=== PATIENT | female | born 1990 | race Caucasian/White ===

== ENCOUNTER 2019-11-10 15:08 | Outpatient (CLI) | payer SELFPAY ==
--- NOTE | 2019-11-10 | US_ITS ---
WS: [id number] ULTRASOUND ABDOMEN CLINICAL INFORMATION: NONINFECTIVE GASTROENTERITIS AND COLITIS RUQ AND RLQ PAIN COMPARISON: Ultrasound January 19, 2017 FINDINGS: Liver Size: Normal. Craniocaudal length: 18.4 cm. Echogenicity: Normal. Surface nodularity: None. Mass (size and location): Small hyperechoic lesion right hepatic lobe likely cavernous hemangioma katy suring 5.3 x 8.5 x 4.1 mm Bile ducts Intrahepatic ducts: Normal. Common bile duct diameter: 0.4 cm. Gallbladder Small stone or polyp in the gallbladder fundus. Gallbladder wall thickening: None. Pericholecystic fluid: None. Sonographic Arteaga sign: Absent. Pancreas Normal as visualized Right kidney: Normal. Hydronephrosis: None. Size: 10.2 cm x 4.3 cm x 4.2 cm Left kidney: Normal. Hydronephrosis: None. Size: 11.2 cm x 5.0 cm x 4.4 cm. Abdominal aorta and IVC Visualized portions are normal. Ascites: None. US/US abdomen complete* [id number] IMPRESSION: 1. Small 5.3 x 8.5 x 4.1 mm hyperechoic lesion right hepatic lobe likely incid ental cavernous hemangioma. 2. Tiny calculus or polyp in the fundus gallbladder. Gallbladder otherwise nor mal. 3. No hydronephrosis in right kidney.
== END 2019-11-10 15:09 | disposition home or self-care (01) ==
LOC: RAD 15:11
PROVIDERS: PCP Nurse Practitioner Family; Visit Provider Nurse Practitioner Family
DX: K52.9 Noninfective gastroenteritis and colitis, unspecified (principal); K76.9 Liver disease, unspecified
CPT/HCPCS: 76700

== ENCOUNTER 2019-11-28 20:41 | Emergency (ER) | payer SELFPAY ==
[2019-11-28 20:47] VITALS: BP 128/86; PULSE 82; RESP 16; TEMP 36.9; O2SAT 100; BMI 26.6
--- NOTE | 2019-11-28 21:05 | ED_ITS ---
HPI - Abdominal Pain General: Chief Complaint: Abdominal Pain Stated Complaint: abdominal pain/vomiting Time Seen by Provider: 11/28/19 20:55 History of Present Illness: HPI narrative: Patient complains about right upper quadrant pain did see Dr. Rodrigez and he referred her to Dr. cm of her appointment on Thursday to see about get her gallbladder out she has a sluggish gallbladder ultrasound showed stone they have been following her labs and they have looked okay patient says she just hurt all day not able to keep food down very well MD elicited complaint: abdominal pain Onset (ago): month(s) Pain Consistency: constant Location: RUQ Severity: moderate Quality: aching Radiation: back Exacerbating factors: eating Relieving factors: nothing Associated Symptoms: Reports bloating; Denies chills and fever(s) Review of Systems Const: Denies: fever(s), chills or body aches Eyes: Denies: change in vision or blurry vision ENMT: Denies: throat pain or nasal congestion Card: Denies: chest pain or dyspnea on exertion Resp: Denies: dyspnea, productive cough or non-productive cough GI: Reports: abdominal pain and bloating Musc: Denies: extremity pain Skin/Breast: Denies: rash Neuro: Denies: headache(s) Psych: Denies: anxiety or depression Osacr/Lymph: Denies: easy bruising PFSH ED PFSH: Family History Mother Thyroid disease Other Diabetes Social History (Updated 11/23/19 @ 09:00 by Anusha Gallegos, CT) Smoking and tobacco status: current every day smoker Alcohol intake: never Marital status: Single Number of children: 1 service: No History of recent travel: No Current gender identity: Female Physical Exam Const: COMMON NORMALS: no acute distress, average body habitus and patient oriented x3 HENMT: COMMON NORMALS: normocephalic HEAD & SCALP: normal to inspection and normocephalic FACE & SINUS: normal facial exam Eye: COMMON NORMALS: conjunctivae normal GENERAL EYE: appearance normal, both eyes and all related structures CONJUNCTIVA: Yes conjunctivae normal Neck/C-Spine: COMMON NORMALS: no JVD Chest: COMMONS NORMALS: normal inspection of the chest Resp: COMMON NORMALS: normal respiratory effort and clear to auscultation bilaterally AUSCULTATION: clear to auscultation bilaterally Cardio: COMMON NORMALS: no JVD, regular rate and regular rhythm RATE: regular rate RHYTHM: regular rhythm GI: COMMON NORMALS: Normal to inspection, nondistended, normoactive bowel sounds present Extremity: COMMON NORMALS: normal to inspection and full ROM Neuro: COMMON NORMALS: patient oriented x3 Course Vital Signs: Vital signs: Vital Signs Temperature 98.5 F 11/28/19 20:47 Pulse Rate 82 11/28/19 20:47 Respiratory Rate 16 11/28/19 20:47 Blood Pressure 128/86 11/28/19 20:47 Pulse Oximetry 100 11/28/19 20:47 Discharge Plan Discharge Prescriptions: No Action cyanocobalamin (vitamin B-12) 1,000 mcg/mL kit 1,000 mcg IM .monthly RF: 0 medroxyprogesterone [Depo-Provera] 150 mg/mL suspension IM .every 3 months RF: 0 hydroxyzine HCl 25 mg tablet 25 mg PO TID PRNRF: 0 ibuprofen 800 mg tablet 800 mg PO TID RF: 0 esomeprazole magnesium [Nexium 24HR] 20 mg capsule,delayed release(DR/EC) 20 mg PO DAILY RF: 0 promethazine 25 mg tablet 25 mg PO QID PRNRF: 0 solifenacin [Vesicare] 5 mg tablet 5 mg PO DAILY RF: 0 levocetirizine [Xyzal] 5 mg tablet 5 mg PO DAILY RF: 0 Coding Level of Care Code ED Printing Roller Polisher for Eugene Suarez
[2019-11-28 21:15] VITALS: BP 132/88; PULSE 83; RESP 14; O2SAT 97
[2019-11-28 21:18] LABS: Basophils % 0.5 %; Eosinophils # 0.3 10^3/uL (0.0-0.8); Eosinophils % 4.9 %; Hematocrit 39.5 % (37.0-47.0); Hemoglobin 12.9 g/dL (11.5-15.3); Lymphocytes # 2.4 10^3/uL (0.8-4.8); Lymphocytes % 37.9 %; Mean Corpuscular HGB Conc 32.7 g/dL (30.0-36.0); Mean Corpuscular Hemoglobin 30.6 pg (28.0-34.0); Mean Corpuscular Volume 93.8 fL (81-99); Mean Platelet Volume 10.3 fL (7.4-10.4); Monocytes # 0.6 10^3/uL (0.2-0.9); Monocytes % 9.5 %; Neutrophils # 2.9 10^3/uL (1.8-7.7); Neutrophils % 46.7 %; Nucleated Red Blood Cells % 0 %; Platelet Count 268 10^3/cmm (130-400); Red Blood Count 4.21 10^6/uL (4.1-5.3); White Blood Count 6.3 10^3/uL (4.0-10.0)
[2019-11-28 21:25] VITALS: RESP 14; O2SAT 100
[2019-11-28] MEDS: morphine 4 mg/mL SDV 1 mL IVP (21:25)
[2019-11-28] MEDS: sodium chloride 0.9% 1,000 ML 999 ML IV (21:25)
[2019-11-28] MEDS: ondansetron 2 mg/ML SDV 2 mL 8 MG IVP (21:25)
[2019-11-28 21:35] LABS: Alanine Aminotransferase 21 U/L (0-33); Albumin Level 4.3 g/dL (3.5-5.2); Alkaline Phosphatase 68 IU/L (35-105); Anion Gap 13.8 (5-19); Aspartate Amino Transferase 18 U/L (0-32); Blood Urea Nitrogen 11 mg/dL (6-20); Calcium 8.9 mg/dL (8.5-10.5); Carbon Dioxide 23 mmol/L (22-29); Chloride 105 mmol/L (98-107); Creatinine Clr Calc Pharmacy 123.7547; Glomerular Filtration Rate 99.6 mL/min (90-130); Glucose 90 mg/dL (65-115); Lipase 36 U/L (13-60); Osmolality Calculated 282 mOsm/kg (285-295); Potassium 3.8 mmol/L (3.5-5.1); Sodium 138 mmol/L (136-145); Total Bilirubin 0.2 mg/dL (0.15-1.2); Total Protein 7.3 g/dL (6.6-8.7)
[2019-11-28 21:41] LABS: HCG Qualitative Urine. Negative (Negative)
[2019-11-28 21:51] LABS: Add Urine Microscopic? YES; Bilirubin Urine Neg (NEGATIVE); Blood Urine Neg (Negative); Glucose Urine UA Norm (Normal); Ketones Urine Negative (Negative); Leukocyte Esterase Urine Trace (Negative); Nitrate Urine Negative (Negative); Protein Urine Neg (Negative); Urine Appearance Hazy (CLEAR); Urine Color Yellow (Yellow); Urobilinogen Urine Norm (Negative); pH Urine 7 (5-7)
[2019-11-28 21:53] LABS: Add Urine Culture? No; Bacteria Urine 1+; RBC Urine 0-4 /hpf (0-2)
[2019-11-28 22:01] VITALS: BP 132/88; PULSE 63; RESP 16; O2SAT 100
[2019-11-28] MEDS: HYDROcodone-acetaminophen 7.5-325 mg Tablet 1 TAB PO (22:05)
[2019-11-28 22:06] VITALS: BP 116/86; PULSE 60; RESP 16; O2SAT 100
== END 2019-11-28 22:09 | disposition home or self-care (01) ==
PROVIDERS: Emergency Medicine; Emergency Provider Nurse Practitioner Family; PCP Nurse Practitioner Family
DX: R10.9 Unspecified abdominal pain (principal); F17.210 Nicotine dependence, cigarettes, uncomplicated
CPT/HCPCS: 12345; 36415; 80053; 81001; 81025; 83690; 85025; 96361; 96374; 96375; 99282; 99283; A9270; J2270; J2405; J7030

== ENCOUNTER 2019-12-06 08:40 | Day surgery (SDC) | payer SELFPAY ==
[2019-12-05 10:29] VITALS: BMI 26.6
[2019-12-06] VITALS (18 sets, daily range): BP systolic 107–168; BP diastolic 71–107; PULSE 60–102; RESP 14–29; TEMP 36.2–36.6; O2SAT 98–100
[2019-12-06] MEDS: sodium chloride 0.9% 1,000 ML 30 ML IV (09:12)
[2019-12-06 09:13] LABS: OR HCG Qualitative Urine Negative (Negative)
[2019-12-06] MEDS: scopolamine 1.5 Patch 1 PATCH TRANSDERMA (09:22)
--- NOTE | 2019-12-06 09:28 | ANES.PREANE2 ---
Pre-Anesthetic Assessment Pre-Anesthetic Assessment: Height/Weight: Height 1.68 m Weight 74.843 kg Temp Pulse Resp BP Pulse Ox 97.9 F 66 18 125/90 100 12/06/19 09:00 12/06/19 09:00 12/06/19 09:00 12/06/19 09:00 12/06/19 09:00 Preop Diagnosis: Symptomatic cholelithiasis Proposed Procedure: Operation Date: 12/06/19 10:10 Proposed Procedures p Laparoscopic Cholecystectomy 78642 K80.20(Not Applicable) - Bill Molina MD Last intake: Intake Last Liquid Date 12/05/19 Last Liquid Time 22:00 Last Solid Date 12/05/19 Last Solid Time 22:00 Social: Social History: Tobacco and No alcohol Exam: Pre-Anes Outpt Exam: alert, oriented x 3, clear to auscultation bilaterally and regular rate & rhythm Airway: Submandibular: WNL Cervical ROM: WNL MP: 2 Dentition: Other (teeth good) History/ROS: No significant history except as noted Pulmonary: Pulmonary: None reported CV/HEM: CV/HEM: None reported : : None reported Hepatic: Hepatic: None reported GI: GI: GERD (not well controlled) Metabolic: Metabolic: None reported Musc/skel: Musc/skel: None reported Neuropsych: Neuropsych: Anxiety and Depression Anesthetic Plan: ASA status: 2 Anesthesia: Anesthesia Evaluation and General Risk of > 500 ml blood loss (7ml/kg in children): No Meds/Allergies Current Medications: Current Medications Generic Name Dose Route Start Last Admin Trade Name Freq PRN Reason Stop Dose Admin Sodium Chloride 1,000 mls @ 30 ml s/hr 12/06/19 09:00 12/06/19 09:12 Sodium Chloride 0.9% IV 12/07/19 08:59 30 mls/hr .Q24H ESDRAS Administration PFSH Anesthesia PFSH: Medical History (Updated 12/06/19 @ 00:00 by ) Anxiety GERD (gastroesophageal reflux disease) Hearing loss Surgical History History of tonsillectomy Family History Mother Thyroid disease Other Diabetes Denies family history of Anesthesia complication Bleeding disorder Social History Smoking and tobacco status: current every day smoker Alcohol intake: never Marital status: Single Number of children: 1 service: No History of recent travel: No Current gender identity: Female Data Anesthesia Other Labs: Laboratory Results - last 48 hr 12/06/19 08:50 Urine HCG, Qual Negative Cardiac Studies: No Data to Display
--- NOTE | 2019-12-06 10:10 | W.PM.OPSUD ---
Surgery/Procedure H&P Update DATE OF PROCEDURE: December 06, 2019 DATE H&P PERFORMED: 11/30/19 H&P UPDATE INFORMATION: I have reviewed H&P completed within last 30 days, I have examined patient prior to procedure and No changes to prior documentation PREOP DIAGNOSIS: Symptomatic cholelithiasis PRIMARY INDICATION FOR PROCEDURE: The same PLANNED PROCEDURE: Operation Date: 12/06/19 10:10 Proposed Procedures p Laparoscopic Cholecystectomy 13547 K80.20(Not Applicable) - Bill Molina MD
[2019-12-06] MEDS: lidocaine 2% INJ 20 mL INJECTION (11:33)
--- NOTE | 2019-12-06 11:43 | PM.OP ---
Operative Report Date of procedure: December 06, 2019 Pre-op Diagnosis: Symptomatic cholelithiasis Post-op diagnosis: other (Chronic calculus cholecystitis) Procedure Done: Laparoscopic cholecystectomy Specimens removed/disposition: Gallbladder and contents Surgeon: Bill Molina Back Strip Machine Operator: Surgical lei Meyers Circulating nurses Kristi Abraham and Desirae Anesthesia: General (Dr. Arreola) Estimated blood loss (mL): 10 Condition: stable Disposition: same day Brief History: This is a pleasant 29 years old female patient presents to my office with symptomatic gallbladder disease . plan of care; After thorough history physical examination and reviewing the chart ,I counseled the patient for laparoscopic cholecystectomy possible open, indications risks including but not limited injury to the common bile duct and other viscera.benefits and alternatives all discussed with the patient, and she did agree to proceed. All questions have been answered and all concerns have been addressed to patient's satisfaction. Rationale was carefully and clearly discussed with the patient.Appropriate informed consent have been reviewed and signed. Procedure: Patient was identified in the holding area and taken back to the operative suite, placed in supine position intubated by anesthesia . Time-out was done verifying the patient's name/date of /planned procedure and destination after the procedure, all were in agreement. SCDs confirmed to be functioning, preoperative antibiotics administered per protocol, and beta shiv protocol was confirmed. Patient was appropriately secured to the table, footboard was applied to the OR table, before prep and drape anesthesia was asked to tilt the table back and forth to make sure that the patient is appropriately secured and she was. Prep and drape of the abdomen was done under the usual sterile technique, followed by that supraumbilical skin transverse incision and excision of the previous scar,skin incision was done by a 15 blade knife, and stay sutures were applied to the fascia and Moreno trocar technique was used to enter the abdominal without injuring any abdominal viscera, started by low flow gas insufflation followed by a high flow, started with a 10 mm laparoscope and under direct vision there was no evidence of any injuries, the scope then switched to a 30? ,10 millimeter scope and under direct visualization 5 millimeter trocar was inserted in the epigastric region followed by two 5 mm trocars were inserted in the right upper quadrant that was done after injection of local lidocaine 2% at all incision sites. Gallbladder showed chronic calculus cholecystitis with adhesions Patient was then positioned in the head up and tilted to the left Ratcheted forceps were introduced into the lateral most 5mm port and was applied unto the fundus of the gallbladder cephalad and using Bullet forceps the infundibulum of the gallbladder was retracted laterally. Using [place] forceps then L-hook cautery to dissect the peritoneum overlying the Calot's triangle whihc was then opened medially and laterally until the cystic duct and the cystic artery were skeletonized. Dissection was carried along the body of the gallbladder and after ensuring critical view of safety was identfied. Cystic duct and cystic artery where seen connected to the gallbladder. Clips were applied on the cystic duct towards the common bile duct 1 towards the gallbladder then divided is in sharp scissors, 2 clips were then applied onto the cystic artery and 1 towards the gallbladder and divided by sharp scissors. Patient traversing vessels were clipped and then divided Dissection was then carried along of the gallbladder from the gallbladder fossa using cautery as well as sharp dissection with heat energy. The gallbladder then was dissected out from the gallbladder fossa totally , cholecystectomy was then achieved and was placed in an Endo Catch bag and then retrieved from the Moreno trocar site under direct visualization using a 5 mm 30? scope through the epigastric trocar, specimen was then passed to the circulating nurse to go for permanent pathology,irrigation and hemostasis was done to the gallbladder fossa after hemostasis was secured, final survey laparoscopy was done that showed no injuries.Suction irrigation was obtaine.d The supraumbilical fascial defect was then closed using interrupted Vicryl sutures using a fascial closure device ;Jhonatan Adair under direct visualization(I did notice that the patient's fascia was attenuated) followed by closure of the subcutaneous and subdermal layer by 3-0 Vicryl after thorough irrigation. Gas was allowed to deflate,Trocars were then taken out under direct vision there was no evidence of bleeding Specimen was passed to the circulating nurse for permanent pathology. No drains were placed and the supraumbilical incision as well as all trocar sites were closed by by 4-0 Monocryl to approximate the skin edges of the supraumbilical incision, dressing was applied in the form of Dermabond and the patient patient got extubated and was taken to recovery area in a stable condition. Count of sponges,needles and instruments were completed at the end of the procedure I was present for the whole entire procedure.
[2019-12-06] MEDS: fentaNYL 50 mcg/mL INJ 2mL IVP ×2 (12:17→12:22)
[2019-12-06] MEDS: morphine 4 mg/mL SDV 1 mL 2 MG IVP ×2 (12:35→12:40)
[2019-12-06] MEDS: HYDROcodone-acetaminophen 5-325 mg Tablet 1 TAB PO (13:33)
== END 2019-12-06 14:13 | disposition home or self-care (01) ==
PROVIDERS: PCP Nurse Practitioner Family; Visit Provider Surgery
PROC: 0FT44ZZ Resection of Gallbladder, Percutaneous Endoscopic Approach (ICD-10-PCS; CPT 47562; principal; 2019-12-06 10:05)
DX: K80.10 Calculus of gallbladder with chronic cholecystitis without obstruction (principal); F41.9 Anxiety disorder, unspecified; K21.9 Gastro-esophageal reflux disease without esophagitis; F17.210 Nicotine dependence, cigarettes, uncomplicated
CPT/HCPCS: 47562; 12345; 81025; 84703; 88304; J0690; J2001; J2270; J2704; J3010; J3490; J7030

== ENCOUNTER → 2020-02-24 08:57 | Outpatient (BNVA) | payer OTHER, SELFPAY | PROVIDERS: PCP Nurse Practitioner Family; Visit Provider Internal Medicine | DX: K21.9 Gastro-esophageal reflux disease without esophagitis (principal); R19.4 Change in bowel habit; Z20.828 Contact with and (suspected) exposure to other viral communicable diseases | CPT/HCPCS: 87635 ==

== ENCOUNTER → 2020-10-23 10:52 | Outpatient (BNVA) | payer BC, SELFPAY | PROVIDERS: PCP Nurse Practitioner Family; Visit Provider Internal Medicine Rheumatology | DX: M19.90 Unspecified osteoarthritis, unspecified site (principal); R76.8 Other specified abnormal immunological findings in serum; Z79.899 Other long term (current) drug therapy; Z11.59 Encounter for screening for other viral diseases; Z11.1 Encounter for screening for respiratory tuberculosis; F17.210 Nicotine dependence, cigarettes, uncomplicated | CPT/HCPCS: 99204 ==

== ENCOUNTER 2020-10-23 12:34 | Outpatient (CLI) | payer BC, SELFPAY ==
[2020-10-23 13:14] LABS: Basophils % 0.3 %; Eosinophils # 0.2 10^3/uL (0.0-0.8); Eosinophils % 3.5 %; Hematocrit 40.2 % (37.0-47.0); Hemoglobin 13.6 g/dL (11.5-15.3); Lymphocytes # 2.4 10^3/uL (0.8-4.8); Lymphocytes % 37.7 %; Mean Corpuscular HGB Conc 33.8 g/dL (30.0-36.0); Mean Corpuscular Hemoglobin 30.8 pg (28.0-34.0); Mean Corpuscular Volume 91.2 fL (81-99); Mean Platelet Volume 10.4 fL (7.4-10.4); Monocytes # 0.5 10^3/uL (0.2-0.9); Monocytes % 7.1 %; Neutrophils # 3.25 10^3/uL (1.8-7.7); Neutrophils % 51.2 %; Nucleated Red Blood Cells % 0 %; Platelet Count 263 10^3/cmm (130-400); Red Blood Count 4.41 10^6/uL (4.1-5.3); White Blood Count 6.3 10^3/uL (4.0-10.0)
[2020-10-23 14:02] LABS: 25 Hydroxy Vitamin D 17 ng/mL (30-100); Alanine Aminotransferase 49 U/L (0-33); Albumin Level 3.9 g/dL (3.5-5.2); Alkaline Phosphatase 78 IU/L (35-105); Aspartate Amino Transferase 144 U/L (0-32); Globulin 3.1 g/dL (1.3-4.6); Glomerular Filtration Rate 118.2 mL/min (90-130); Total Bilirubin 0.5 mg/dL (0.15-1.2)
[2020-10-23 14:08] LABS: Bilirubin Urine Neg (Negative); Blood Urine 3+ (Negative); Glucose Urine UA Norm (Normal); Ketones Urine Negative (Negative); Leukocyte Esterase Urine Negative (Negative); Nitrate Urine Negative (Negative); Protein Urine Neg (Negative); Urine Appearance Clear (CLEAR); Urine Color Straw (Yellow); Urobilinogen Urine Norm (Negative); pH Urine 6.5 (5-7)
[2020-10-23 14:09] LABS: Urine Creatinine 82 mg/dL (28-217); Urine Protein Random 12 mg/dL
[2020-10-23 14:11] LABS: RBC Urine 0-4 /hpf (0-2); WBC Urine 0-4 /hpf (0-5)
[2020-10-23 14:12] LABS: Add Urine Culture? No; Bacteria Urine 3+ /hpf
[2020-10-23 14:14] LABS: Hepatitis B Core AB, Total Non-Reactive (Nonreactive); Hepatitis B Surface Antigen Non-Reactive (Nonreactive); Hepatitis C Virus Antibody Non-Reactive (Nonreactive)
[2020-10-24 11:32] LABS: COMPLEMENT COMPONENT C3C 105 mg/dL (83-193); COMPLEMENT COMPONENT C4C 23 mg/dL (15-57)
[2020-10-24 14:54] LABS: COMPLEMENT, TOTAL (CH50) >60 U/mL (31-60)
[2020-10-25 13:17] LABS: CENTROMERE B ANTIBODY <1.0 NEG AI (<1.0 NEG); JO-1 ANTIBODY <1.0 NEG AI (<1.0 NEG); RNP ANTIBODY <1.0 NEG AI (<1.0 NEG); SCL-70 ANTIBODY <1.0 NEG AI (<1.0 NEG); SJOGREN'S ANTIBODY (SS-A) <1.0 NEG AI (<1.0 NEG); SM ANTIBODY <1.0 NEG AI (<1.0 NEG); SS-B <1.0 NEG AI (<1.0 NEG)
[2020-10-25 14:58] LABS: Quantiferon Mitogen 8.02 IU/mL; Quantiferon Nil 0.01 IU/mL; Quantiferon Plus TB1 0.01 IU/mL; Quantiferon Plus TB2 0.01 IU/mL; Quantiferon TB Gold NEGATIVE (NEGATIVE)
[2020-10-25 16:33] LABS: THYROID PEROXIDASE ANTIBODIES 417 IU/mL (<9)
[2020-10-26 14:27] LABS: ANA PATTERN Nuclear, Homogeneous; ANA SCREEN, IFA POSITIVE (NEGATIVE)
[2020-11-02 23:51] LABS: DNA AB (DS) CRITHIDIA,IFA NEGATIVE (NEGATIVE)
== END 2020-10-23 12:35 | disposition home or self-care (01) ==
PROVIDERS: PCP Nurse Practitioner Family; Visit Provider Internal Medicine Rheumatology
DX: M19.90 Unspecified osteoarthritis, unspecified site (principal); R76.8 Other specified abnormal immunological findings in serum; Z79.899 Other long term (current) drug therapy; Z11.59 Encounter for screening for other viral diseases; Z11.1 Encounter for screening for respiratory tuberculosis
CPT/HCPCS: 36415; 80076; 81001; 82306; 82565; 82570; 84156; 85025; 86160; 86162; 86235; 86255; 86376; 86480; 86704; 86803; 87340

== ENCOUNTER → 2020-11-27 15:06 | Outpatient (BNVA) | payer BC, SELFPAY | PROVIDERS: PCP Nurse Practitioner Family; Visit Provider Internal Medicine Rheumatology | DX: M15.9 Polyosteoarthritis, unspecified (principal); R76.8 Other specified abnormal immunological findings in serum; Z79.899 Other long term (current) drug therapy; F17.210 Nicotine dependence, cigarettes, uncomplicated | CPT/HCPCS: 99214 ==

== ENCOUNTER 2021-02-15 15:04 | Emergency (ER) | payer BC, SELFPAY ==
[2021-02-15 16:08] VITALS: BP 125/85; PULSE 60; RESP 18; TEMP 36.7; O2SAT 98; BMI 26.4
--- NOTE | 2021-02-15 17:28 | USR_ITS ---
PROCEDURE INFORMATION: Exam: US Pelvis, Transvaginal Exam date and time: 02/15/2021 5:28 PM Age: 30 years old Clinical indication: Pelvic pain; Additional info: Bleeding/cramping; Check iud placement, PT not in room, er will call once placed in room-kb TECHNIQUE: Imaging protocol: Real-time transvaginal pelvic ultrasound with image documentation. Transvaginal imaging was used for better evaluation of the endometrium, adnexa, and/or cervix. COMPARISON: No relevant prior studies available. FINDINGS: Transvaginal imaging of the pelvis was performed. The uterus measured 6.8 x 3.6 by 4.8 cm. There is no uterine mass. An IUD is noted within the endometrial canal. Is The right ovary measured 4.4 x 3.2 x 4.0 cm. There is a 2.8 cm cyst within the right ovary. Normal color Doppler and spectral waveforms are seen within the remainder of the ovary. The left ovary measured 2.7 x 1.6 x 2.2 cm. There is no mass within the left ovary. Normal color Doppler and spectral waveforms are noted. Minimal free fluid is seen within the cul-de-sac. US/ transvaginal [id number] IMPRESSION: 1. The 2.8 cm cyst within the right ovary. 2. IUD within the uterus.
--- NOTE | 2021-02-15 21:00 | ED_ITS ---
HPI - Female Genitourinary General: Chief complaint: Urogenital-Female Stated complaint: vaginal discomfort Time Seen by Provider: 02/15/21 20:37 Source: patient Mode of arrival: ambulatory Limitations: no limitations History of Present Illness: HPI Narrative: Patient is a 30-year-old female who presents to ED today with concerns of possible IUD misplacement. Patient tells me she has not been able to feel her strings over the past few days. She states she noticed some lower pelvic cramping yesterday but states that is not abnormal as she has had this intermittently since the IUD was placed in August. She has not had any vaginal bleeding since IUD placement but noticed yesterday she did experience some blood when wiping. She is not having any vaginal odor, vaginal discharge, dyspareunia. Denies new sexual partners. No fevers. MD elicited complaint: other (pelvic cramping, vaginal bleeding, concern for IUD placement) Onset (ago): hour(s) Quality of pain: cramping Consistency: intermittent Vaginal discharge: none Vaginal bleeding: scant Exacerbating factors: none Relieving factors: none Associated symptoms: Reports no associated symptoms; Deny abdominal pain, nausea or vaginal discharge Treatment prior to arrival: none Patient : No Review of Systems Const: Denies: fever(s), chills, body aches, fatigue or malaise Card: Denies: chest pain Resp: Denies: dyspnea GI: Reports: diarrhea (chronic since cholecystectomy); Denies: abdominal pain, nausea or vomiting : Reports: vaginal bleeding and pelvic pain; Denies: flank pain, difficulty voiding, dysuria, urinary urgency, vaginal odor or vaginal discharge Musc: Denies: back pain Skin/Breast: Denies: rash PFSH ED PFSH: Medical History (Updated 02/15/21 @ 22:47 by HERMELINDO Correia) Anti-TPO antibodies present Anxiety GERD (gastroesophageal reflux disease) Hearing loss High risk medication use Immunization counseling Inflammatory arthritis Positive ADRIENNE (antinuclear antibody) Surgical History History of adenoidectomy History of cholecystectomy History of hernia repair History of tonsillectomy Family History Mother Thyroid disease Other Diabetes Denies family history of Anesthesia complication Bleeding disorder Social History Smoking and tobacco status: current every day smoker Alcohol intake: never Marital status: Single Number of children: 1 Current occupational status: employed History of recent travel: No Physical Exam Const: COMMON NORMALS: no acute distress, average body habitus, patient oriented x3, no limitations, healthy appearing, alert and well nourished Resp: COMMON NORMALS: normal respiratory effort and clear to auscultation bilaterally AUSCULTATION: clear to auscultation bilaterally Cardio: COMMON NORMALS: regular rate and regular rhythm RATE: regular rate RHYTHM: regular rhythm GI: COMMON NORMALS: Normal to inspection, nondistended, normoactive bowel sounds present, Soft to palpation, non-tender, No hepatosplenomegaly present and no masses AUSCULTATION: Yes normoactive bowel sounds PALPATION: Yes Soft to palpation, No Guarding due to palpation present (GI), No Rigid due to palpation and Yes No hepatosplenomegaly present OTHER: tenderness to palpation lower pelvis : COMMON NORMALS: Yes no CVA tenderness BLADDER/KIDNEY EXAM: Yes no CVA tenderness OTHER: patient deferred pelvic exam Back/Pelvis: COMMON NORMALS: no CVA tenderness Neuro: COMMON NORMALS: patient oriented x3 SENSORIUM/ORIENTATION: Yes alert Course Vital Signs: Vital signs: Vital Signs Temperature 98.1 F 02/15/21 16:08 Pulse Rate 60 02/15/21 16:08 Respiratory Rate 18 02/15/21 22:05 Blood Pressure 125/85 02/15/21 16:08 Pulse Oximetry 99 02/15/21 22:05 MDM - Female MDM Narrative: Medical decision making narrative: Patient had alerted RN that she did not wish to receive pelvic exam at this time fearing it would be too uncomfortable. I told her I would be more than willing to give her additional pain medications if needed however patient does not want this exam. I did tell patient with her complaint of pelvic pain that a pelvic exam would be vital in helping me assess possible etiologies for her discomfort. She understands and states she would like to follow up with her [facility]. She assures me she has not had any new sexual partners, vaginal discharge or concern for STDs. I told her by US it looks like her IUD is in place but ideally I would like to visualize strings myself on pelvic exam. I explained that w/o pelvic exam I do not have a diagnosis regarding her discomfort. She is okay with this and again states she will follow up with [facility]. Strict return to ED precautions given. Lab Data: Labs: Lab Results 02/15/21 02/15/21 02/15/21 Range/Units 20:53 20:53 21:50 WBC 5.8 (4.0-10.0) 10^3/ uL RBC 5.17 (4.1-5.3) 10^6/u L Hgb 15.4 H (11.5-15.3) g/dL Hct 47.3 H (37.0-47.0) % MCV 91.5 (81-99) fl MCH 29.8 (28.0-34.0) pg MCHC 32.6 (30.0-36.0) g/dL RDW 11.7 L (12.1-15.1) % Plt Count 203 (130-400) 10^3/c mm MPV 11.7 H (7.4-10.4) fL Neut % (Auto) 39.7 % Lymph % (Auto) 45.0 % [place] % (Auto) 10.3 % Eos % (Auto) 4.3 % Baso % (Auto) 0.5 % Neut # (Auto) 2.28 (1.8-7.7) 10^3/u L Lymph # (Auto) 2.6 (0.8-4.8) 10^3/u L [place] # (Auto) 0.6 (0.2-0.9) 10^3/u L Eos # (Auto) 0.3 (0.0-0.8) 10^3/u L Baso # (Auto) 0.0 (0.0-0.1) 10^3/u L Nucleated RBC % (a uto) 0 % Nucleated RBCs # 0.0 /100WBC Sodium 139 (136-145) mmol/L Potassium 4.2 (3.5-5.1) mmol/L Chloride 105 (98-107) mmol/L Carbon Dioxide 22 (22-29) mmol/L Anion Gap 16.2 (5-19) BUN 4 L (6-20) mg/dL Creatinine 0.4 L (0.5-0.9) mg/dL GFR Calculation 188.7 H (90-130) mL/min Glucose 81 (65-115) mg/dL Calculated Osmolal ity 284 L (285-295) mOsm/k g Calcium 8.8 (8.5-10.5) mg/dL Total Bilirubin 0.4 (0.15-1.2) mg/dL AST 28 (0-32) U/L ALT 29 (0-33) U/L Alkaline Phosphata se 102 (35-105) IU/L Total Protein 7.9 (6.6-8.7) g/dL Albumin 4.2 (3.5-5.2) g/dL Globulin 3.7 (1.3-4.6) g/dL Lipase 32 (13-60) U/L Ser , Bekah i-Qnt 0.50 mIU/mL Urine Color Yellow (Yellow) Urine Appearance Clear (CLEAR) Urine pH 5 (5-7) Ur Specific Gravit y 1.015 (1.005-1.030) Urine Protein Neg (Negative) Urine Glucose (UA) Norm (Normal) Urine Ketones Negative (Negative) Urine Blood Neg (Negative) Urine Nitrate Negative (Negative) Urine Bilirubin Neg (Negative) Urine Urobilinogen Norm (Negative) mg/dL Ur Leukocyte Althea ase Negative (Negative) Imaging Data: TV US: Radiologist's impression: [address] [id number] ReportSigned Patient: Katelyn Vasquez #: [id number]: 1990Acct#:[id number]/Sex: 30 / FADM Date: 02/15/21Loc: ERRoom/Bed:Attending Dr: Ordering Provider/Ordering MD: Harleen Lawton Date of Service: 02/15/21 Procedure(s): US transvaginal [id number] Accession Number(s): [id number] Report Number: [id number] PROCEDURE INFORMATION: Exam: US Pelvis, Transvaginal Exam date and time: 02/15/2021 5:28 PM Age: 30 years old Clinical indication: Pelvic pain; Additional info: Bleeding/cramping; Check iud placement, PT not in room, er will call once placed in room-kb TECHNIQUE: Imaging protocol: Real-time transvaginal pelvic ultrasound with image documentation. Transvaginal imaging was used for better evaluation of the endometrium, adnexa, and/or cervix. COMPARISON: No relevant prior studies available. FINDINGS: Transvaginal imaging of the pelvis was performed. The uterus measured 6.8 x 3.6 by 4.8 cm. There is no uterine mass. An IUD is noted within the endometrial canal. Is The right ovary measured 4.4 x 3.2 x 4.0 cm. There is a 2.8 cm cyst within the right ovary. Normal color Doppler and spectral waveforms are seen within the remainder of the ovary. The left ovary measured 2.7 x 1.6 x 2.2 cm. There is no mass within the left ovary. Normal color Doppler and spectral waveforms are noted. Minimal free fluid is seen within the cul-de-sac. US/US transvaginal [id number] IMPRESSION: 1. The 2.8 cm cyst within the right ovary. 2. IUD within the uterus. Dictated By:Christiano Damian MDSigned By:Christiano Damian MDSigned Date/Time:02/15/211928DD/ 26 Discharge Plan Discharge Patient Disposition: Home Clinical Impression: Pelvic pain Condition: Stable Prescriptions: No Action prednisone 10 mg tablet See Rx Instructions PO .COMPLEX PRN (Reason: joint pain) Qty: 60 RF: 1 leflunomide 20 mg tablet 20 mg PO DAILY Qty: 30 RF: 3 clobetasol 0.025 % cream 1 applic topical BID Qty: 60 RF: 1 ibuprofen 800 mg tablet 800 mg PO TID RF: 0 promethazine 25 mg tablet 25 mg PO QID PRN (Reason: NAUSEA/VOMITING) RF: 0 levocetirizine [Xyzal] 5 mg tablet 5 mg PO DAILY RF: 0 ciprofloxacin HCl [Cipro] 500 mg tablet 500 mg PO DAILY Qty: 3 RF: 0 Discharge Orders: Discharge ED (Routine); Ordered 02/15/21 Ordered By: Harleen Lawton Referrals: Apurva Salvador FNP-C [Primary Care Provider] - Patient Instructions: Pelvic Pain Activity Restrictions/Additional Instructions: As we discussed your ultrasound today showed your IUD was in place. You did have a cyst on your right ovary. Labs and urine looked normal. As we discussed you have deferred a pelvic exam at this time. I cannot definitively give you a diagnosis for your pelvic discomfort without this examination. As we discussed please follow-up with primary care or your manager cardiovascular at your earliest convenience for further evaluation. Please return to the emergency department for worsening or uncontrollable pain, vaginal discharge, fevers. Or any other concerns you may have. I hope you begin to feel better soon. Coding Level of Care Code ED Band Splicer for Chg Fwd Exam Detailed
[2021-02-15 21:06] LABS: Basophils % 0.5 %; Eosinophils # 0.3 10^3/uL (0.0-0.8); Eosinophils % 4.3 %; Hematocrit 47.3 % (37.0-47.0); Hemoglobin 15.4 g/dL (11.5-15.3); Lymphocytes # 2.6 10^3/uL (0.8-4.8); Mean Corpuscular HGB Conc 32.6 g/dL (30.0-36.0); Mean Corpuscular Hemoglobin 29.8 pg (28.0-34.0); Mean Corpuscular Volume 91.5 fl (81-99); Mean Platelet Volume 11.7 fL (7.4-10.4); Monocytes # 0.6 10^3/uL (0.2-0.9); Monocytes % 10.3 %; Neutrophils # 2.28 10^3/uL (1.8-7.7); Neutrophils % 39.7 %; Nucleated Red Blood Cells % 0 %; Platelet Count 203 10^3/cmm (130-400); Red Blood Count 5.17 10^6/uL (4.1-5.3); Red Cell Distribution Width 11.7 % (12.1-15.1); White Blood Count 5.8 10^3/uL (4.0-10.0)
[2021-02-15 21:08] LABS: Slide Review Slide Review Perform
[2021-02-15 21:27] LABS: Alanine Aminotransferase 29 U/L (0-33); Albumin Level 4.2 g/dL (3.5-5.2); Alkaline Phosphatase 102 IU/L (35-105); Blood Urea Nitrogen 4 mg/dL (6-20); Calcium 8.8 mg/dL (8.5-10.5); Carbon Dioxide 22 mmol/L (22-29); Chloride 105 mmol/L (98-107); Globulin 3.7 g/dL (1.3-4.6); Glomerular Filtration Rate 188.7 mL/min (90-130); Glucose 81 mg/dL (65-115); Lipase 32 U/L (13-60); Osmolality Calculated 284 mOsm/kg (285-295); Sodium 139 mmol/L (136-145); Total Bilirubin 0.4 mg/dL (0.15-1.2); Total Protein 7.9 g/dL (6.6-8.7)
[2021-02-15 21:28] LABS: Anion Gap 16.2 (5-19); Aspartate Amino Transferase 28 U/L (0-32); Potassium 4.2 mmol/L (3.5-5.1)
[2021-02-15 22:01] LABS: Add Urine Microscopic? NO; Charge for UA Resulting for Rev
[2021-02-15 22:04] LABS: Urine Appearance Clear (CLEAR); Urine Color Yellow (Yellow)
[2021-02-15 22:05] VITALS: RESP 18; O2SAT 99
[2021-02-15 22:05] LABS: Bilirubin Urine Neg (Negative); Blood Urine Neg (Negative); Glucose Urine UA Norm (Normal); Ketones Urine Negative (Negative); Leukocyte Esterase Urine Negative (Negative); Nitrate Urine Negative (Negative); Protein Urine Neg (Negative); Specific Gravity, Urine 1.015 (1.005-1.030); Urobilinogen Urine Norm (Negative); pH Urine 5 (5-7)
[2021-02-15] MEDS: morphine 4 mg/mL SDV 1 mL IVP (22:05)
[2021-02-15 23:13] VITALS: BP 139/74; PULSE 72; RESP 18; TEMP 36.9; O2SAT 99
== END 2021-02-15 23:00 | disposition home or self-care (01) ==
PROVIDERS: Emergency Medicine; Emergency Provider Physician Assistant; PCP Nurse Practitioner Family
DX: R10.2 Pelvic and perineal pain (principal); F17.200 Nicotine dependence, unspecified, uncomplicated; Z97.5 Presence of (intrauterine) contraceptive device
CPT/HCPCS: 76830; 80053; 81003; 83690; 84702; 85025; 96374; 99283; J2270

== ENCOUNTER → 2021-03-28 13:10 | Outpatient (BNVA) | payer BC, SELFPAY | PROVIDERS: PCP Nurse Practitioner Family; Visit Provider Internal Medicine Rheumatology | DX: M19.90 Unspecified osteoarthritis, unspecified site (principal); R76.8 Other specified abnormal immunological findings in serum; Z79.899 Other long term (current) drug therapy; Z71.89 Other specified counseling; F17.200 Nicotine dependence, unspecified, uncomplicated | CPT/HCPCS: 99214 ==

== ENCOUNTER → 2021-05-30 11:47 | Outpatient (BNVA) | payer BC, SELFPAY | PROVIDERS: PCP Nurse Practitioner Family; Visit Provider Nurse Practitioner Family | DX: N91.2 Amenorrhea, unspecified (principal) | CPT/HCPCS: 84702 ==

== ENCOUNTER → 2021-06-24 14:18 | Outpatient (BNVA) | payer BC, SELFPAY | PROVIDERS: PCP Nurse Practitioner Family; Visit Provider Family Medicine | DX: J32.9 Chronic sinusitis, unspecified (principal) | CPT/HCPCS: 87400; 87635 ==

== ENCOUNTER → 2021-07-30 11:10 | Outpatient (BNVA) | payer BC, SELFPAY | PROVIDERS: PCP Nurse Practitioner Family; Visit Provider Internal Medicine | DX: Z01.812 Encounter for preprocedural laboratory examination (principal); R93.3 Abnormal findings on diagnostic imaging of other parts of digestive tract; Z20.822 Contact with and (suspected) exposure to COVID-19 | CPT/HCPCS: 87635 ==

== ENCOUNTER 2021-08-05 06:11 | Day surgery (SDC) | payer BC, SELFPAY ==
[2021-07-31 14:47] VITALS: BMI 25.0
[2021-08-05 06:34] VITALS: BP 139/87; PULSE 56; RESP 18; TEMP 36.2; O2SAT 100
[2021-08-05 06:43] LABS: OR HCG Qualitative Urine Negative (Negative)
--- NOTE | 2021-08-05 06:43 | P.ANESASSM_ITS ---
Pre-Anesthetic Assessment Height/Weight: Height 1.68 m Weight 70.307 kg Temp Pulse Resp BP Pulse Ox 97.1 F L 56 L 18 139/87 100 08/05/21 06:34 08/05/21 06:34 08/05/21 06:34 08/05/21 06:34 08/05/21 06:34 Preop Diagnosis: Chron cons Operation Date: 08/05/21 07:00 Proposed Procedures p Colonoscopy 77317/r93.3(Not Applicable) - Luis Enrique Rodrigez MD Was Beta Kirk taken within 24 hours: N/A Was Clonidine taken within 24 hours: N/A Last intake: Intake Last Liquid Date 08/04/21 Last Liquid Time 23:00 Last Solid Date 08/03/21 Last Solid Time 14:00 Social Tobacco and No alcohol 3 cigs per day pack(s) per day Exam alert and oriented x 3 Airway Submandibular: within normal limits Cervical ROM: within normal limits Mallampati: Class II Dentition: full History/ROS No significant history except as noted Pulmonary Asthma (as a child, no issues as an adult) CV/HEM None reported None reported Hepatic None reported GI Gastroesophageal Reflux Disease Metabolic None reported Musc/skel None reported Neuropsych Anxiety Anesthetic Plan ASA status: 2 Anesthesia: Anesthesia Evaluation and MAC Risk of > 500 ml blood loss (7ml/kg in children): Yes, adequate IV access and fluids planned Medications/Allergies Home Medications Medication Instructions Recorded Confirmed Last Taken Type norethindrone 1 mg-ethinyl 1 tab PO DAILY 07/03/21 08/05/21 08/05/21 History estradiol 20 mcg (21)-iron 75 mg (7) tablet levocetirizine 5 mg tablet (Xyzal) 5 mg PO DAILY PRN 08/05/21 08/05/21 Unknown History Allergies Allergy/AdvReac Type Severity Reaction Status Date / Time latex Allergy Intermediate hives Verified 07/30/21 09:12 codeine Allergy Mild unknown Verified 07/03/21 13:24 leflunomide AdvReac Severe blurred Verified 07/03/21 13:24 vision and migraines [facility] Anesthesia Medical History Anti-TPO antibodies present Anxiety Chronic constipation GERD (gastroesophageal reflux disease) Hearing loss High risk medication use Immunization counseling Inflammatory arthritis Positive ADRIENNE (antinuclear antibody) Surgical History History of adenoidectomy History of cholecystectomy History of hernia repair History of tonsillectomy Family History Mother Thyroid disease Other Diabetes Denies family history of Anesthesia complication Bleeding disorder Social History Smoking and tobacco status: current every day smoker Alcohol intake: never Marital status: Single Number of children: 1 Current occupational status: employed History of recent travel: No Data Anesthesia Cardiac Studies: No Data to Display
[2021-08-05] MEDS: sodium chloride 0.9% 1,000 ML 30 ML IV (06:47)
--- NOTE | 2021-08-05 07:16 | W.PM.OPSFHP ---
Same Day Surgery H&P Indication for Procedure/HPI DATE OF PROCEDURE: August 05, 2021 CHIEF COMPLAINT/INDICATIONFOR SURGICAL PROCEDURE: abnormal CT colon PREOP DIAGNOSIS: Chron cons PLANNED PROCEDURE: Operation Date: 08/05/21 07:00 Proposed Procedures p Colonoscopy 36303/r93.3(Not Applicable) - Luis Enrique Rodrigez MD Medications/Allergies* Home Medications Medication Instructions Recorded Confirmed Type norethindrone 1 mg-ethinyl 1 tab PO DAILY 07/03/21 08/05/21 History estradiol 20 mcg (21)-iron 75 mg (7) tablet levocetirizine 5 mg tablet (Xyzal) 5 mg PO DAILY PRN 08/05/21 08/05/21 History Allergies/Adverse Reactions Allergy/AdvReac Type Severity Reaction Status Date / Time latex Allergy Intermediate hives Verified 07/30/21 09:12 codeine Allergy Mild unknown Verified 07/03/21 13:24 leflunomide AdvReac Severe blurred Verified 07/03/21 13:24 vision and migraines Current Medications: Generic Name Dose Route Start Last Admin Trade Name Freq PRN Reason Stop Dose Admin Sodium Chloride 1,000 mls @ 30 mls/hr 08/05/21 06:15 08/05/21 06:47 Sodium Chloride 0.9% IV 08/06/21 06:14 30 mls/hr .Q24H ESDRAS Administration Pertinent History/Comorbid Conditions* Medical History (Updated 07/30/21 @ 09:36 by Luis Enrique Rodrigez MD) Anti-TPO antibodies present Anxiety Chronic constipation GERD (gastroesophageal reflux disease) Hearing loss High risk medication use Immunization counseling Inflammatory arthritis Positive ADRIENNE (antinuclear antibody) Surgical History (Updated 10/23/20 @ 12:38 by Riaz Rosenberg MD) History of adenoidectomy History of cholecystectomy History of hernia repair History of tonsillectomy Family History (Updated 11/30/19 @ 13:50 by Odalys Sanchez RN) Diabetes Thyroid disease Mother Denies family history of Anesthesia complication Bleeding disorder Social History Smoking and tobacco status: current every day smoker Alcohol intake: never Marital status: Single Number of children: 1 Current occupational status: employed History of recent travel: No Pertinent Exam Findings alert, oriented x 3, clear to auscultation bilaterally, regular rate & rhythm, operative site marked and procedure specific exam findings Recommendations Surgery/Procedure today Coding Level of Care Code Acute 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
[2021-08-05 07:29] VITALS: BP 126/83; PULSE 73; RESP 16; TEMP 36.1; O2SAT 98
[2021-08-05 07:39] VITALS: BP 117/84; PULSE 77; RESP 18; O2SAT 97
--- NOTE | 2021-08-05 15:48 | ANE.PACU2 ---
Inpatient post-anesthesia follow up: Airway intact: Yes Vital signs: Temperature 97 F Pulse Rate 77 Respiratory Rate 18 Blood Pressure 117/84 Pulse Oximetry 97 Oxygen Delivery Me thod Room Air Oxygen Flow Rate Fraction of Inspir ed Oxygen Hydration adequate: Yes Nausea and vomiting: No Pain level: 1 Mental status: Baseline
== END 2021-08-05 07:59 | disposition home or self-care (01) ==
PROVIDERS: Anesthesiology; PCP Nurse Practitioner Family; Visit Provider Internal Medicine
PROC: 0DJD8ZZ Inspection of Lower Intestinal Tract, Via Natural or Artificial Opening Endoscopic (ICD-10-PCS; CPT 45378; principal; 2021-08-05 07:00)
DX: R93.3 Abnormal findings on diagnostic imaging of other parts of digestive tract (principal); K21.9 Gastro-esophageal reflux disease without esophagitis; F17.210 Nicotine dependence, cigarettes, uncomplicated
CPT/HCPCS: 45378; 81025; 84703; J2704; J7030

== ENCOUNTER 2021-11-04 13:51 | Outpatient (CLI) | payer BC, SELFPAY ==
--- NOTE | 2021-11-04 14:12 | US_ITS ---
WS: [id number] ULTRASOUND ABDOMEN LIMITED CLINICAL INFORMATION: INDETERMINATE 11MM 6MM HYPODENALTIES IN THE R HEPATIC LOBE COMPARISON: Ultrasound November 10, 2019 FINDINGS: Liver Size: Normal. Craniocaudal length: 13.6 cm. Echogenicity: Normal. Surface nodularity: None. Mass (size and location): 2 cavernous hemangiomas Bile ducts Intrahepatic ducts: Normal. Common bile duct diameter: 0.4 cm. Gallbladder Cholecystectomy Pancreas Normal as visualized. Right kidney: Normal. Hydronephrosis: None. Size: 10.4 cm x 4.3 cm x 4.9 cm. Abdominal aorta and IVC Visualized portions are normal. Ascites: None. US/US abdomen limited 22937 IMPRESSION: 1. 2 echogenic lesions visualized in the liver measuring 1.6 x 1.2 x 1.8 cm an d 0.8 x 0.7 cm consistent with cavernous hemangiomas. The smaller lesion appear s stable from previous. 2. Cholecystectomy 3. Normal common bile duct. 4. No hydronephrosis in RIGHT kidney.
== END 2021-11-04 13:52 | disposition home or self-care (01) ==
PROVIDERS: PCP Nurse Practitioner Family; Visit Provider Nurse Practitioner Family
DX: D18.03 Hemangioma of intra-abdominal structures (principal); R93.2 Abnormal findings on diagnostic imaging of liver and biliary tract; Z90.49 Acquired absence of other specified parts of digestive tract
CPT/HCPCS: 76705

== ENCOUNTER → 2022-02-05 09:42 | Outpatient (BNVA) | payer BC, SELFPAY | PROVIDERS: PCP Nurse Practitioner Family; Visit Provider Nurse Practitioner | DX: R21 Rash and other nonspecific skin eruption (principal) | CPT/HCPCS: 86003; 86008 ==

== ENCOUNTER → 2022-03-31 10:23 | Outpatient (BNVA) | payer BC, SELFPAY | PROVIDERS: PCP Nurse Practitioner; Visit Provider Nurse Practitioner | DX: R42 Dizziness and giddiness (principal) | CPT/HCPCS: 80053; 81000; 85025 ==

== ENCOUNTER → 2022-10-28 08:15 | Outpatient (BNVA) | payer MEDICAID, SELFPAY | PROVIDERS: PCP Nurse Practitioner; Visit Provider Internal Medicine Rheumatology | DX: M32.9 Systemic lupus erythematosus, unspecified (principal) | CPT/HCPCS: 80053; 85025; 85651 ==

== ENCOUNTER → 2022-11-24 14:48 | Outpatient (BNVA) | payer MEDICAID, SELFPAY | PROVIDERS: PCP Nurse Practitioner; Visit Provider Nurse Practitioner | DX: J02.0 Streptococcal pharyngitis (principal); J20.9 Acute bronchitis, unspecified | CPT/HCPCS: 87880 ==

== ENCOUNTER → 2023-01-22 11:44 | Outpatient (BNVA) | payer MEDICAID, SELFPAY | PROVIDERS: PCP Nurse Practitioner; Referring Provider Nurse Practitioner Family; Visit Provider Obstetrics & Gynecology | DX: R32 Unspecified urinary incontinence (principal); N92.1 Excessive and frequent menstruation with irregular cycle | CPT/HCPCS: 83001; 84146; 84443; 84702; 87086 ==

== ENCOUNTER → 2023-02-10 15:19 | Outpatient (BNVA) | payer MEDICAID, SELFPAY | PROVIDERS: PCP Nurse Practitioner; Visit Provider Obstetrics & Gynecology | DX: N93.9 Abnormal uterine and vaginal bleeding, unspecified (principal) | CPT/HCPCS: 76830 ==

== ENCOUNTER 2023-06-09 12:34 | Observation (INO) | payer MEDICAID, SELFPAY ==
[2023-06-05 10:59] LABS: Basophils # 0.1 10^3/uL (0.0-0.1); Basophils % 0.8 %; Eosinophils # 0.3 10^3/uL (0.0-0.8); Eosinophils % 4.3 %; Hematocrit 41.6 % (36-47); Lymphocytes # 1.8 10^3/uL (0.8-4.8); Lymphocytes % 30.3 %; Mean Corpuscular HGB Conc 33.7 g/dL (30-55); Mean Corpuscular Hemoglobin 31.5 pg (27-33); Mean Corpuscular Volume 93.5 fl (85-98); Mean Platelet Volume 9.9 fL (7.4-10.4); Monocytes # 0.5 10^3/uL (0.2-0.9); Monocytes % 8.1 %; Neutrophils # 3.38 10^3/uL (1.8-7.7); Neutrophils % 56.2 %; Nucleated Red Blood Cells % 0 %; Platelet Count 296 10^3/cmm (157-399); Red Blood Count 4.45 10^6/uL (3.85-5.65); Red Cell Distribution Width 11.9 % (12.1-15.1); White Blood Count 6.03 10^3/uL (3.29-11.43)
--- NOTE | 2023-06-05 11:17 | P.ANESASSM_ITS ---
Pre-Anesthetic Assessment Height/Weight: Height 1.68 m Operation Date: 06/09/23 12:15 Proposed Procedures p Total vaginal hysterectomy 89772, Single incision sling 63122,N92.1,N93.46(Not Applicable) - Osmar Monet MD s Sling Single Incision Sling(Not Applicable) - Osmar Monet MD Familial anesthetic complications: None\ ALPHA GAL - Anaphylaxis Social Tobacco and No alcohol Exam alert, oriented x 3, clear to auscultation bilaterally and regular rate & rhythm Airway Dentition: partials Pulmonary bronchitis episodes Musc/skel Fibromyalgia Lupus Anesthetic Plan ASA status: 3 Anesthesia: General Risk of > 500 ml blood loss (7ml/kg in children): No Medications/Allergies Home Medications Medication Instructions Recorded Confirmed Last Taken Type levocetirizine 5 mg tablet (Xyzal) 10 mg PO BEDTIME Allergic Symptoms 11/21/21 06/05/23 06/05/23 History folic acid 1 mg tablet 1 tab PO DAILY 01/07/22 06/05/23 06/05/23 History hydroxychloroquine 200 mg tablet 200 mg PO BID 01/07/22 06/05/23 06/05/23 History methotrexate sodium 2.5 mg tablet 4 tab PO .Q Thursday01/07/22 06/05/23 05/31/23 History albuterol sulfate 90 mcg/actuation 2 puff inhalation Q6H PRN 05/28/23 06/05/23 Unknown Rx aerosol inhaler (Ventolin HFA) shortness of breath or wheezing #8.5 grams budesonide-formoterol HFA 80 1 inh inhalation BID 30 days #10.2 05/28/23 06/05/23 06/05/23 Rx mcg-4.5 mcg/actuation aerosol grams inhaler (Symbicort) aripiprazole 2 mg tablet (Abilify) 2 mg PO BEDTIME 06/05/23 06/05/23 06/05/23 History escitalopram oxalate 20 mg tablet 20 mg PO BEDTIME 06/05/23 06/05/23 06/05/23 History (Lexapro) tizanidine 4 mg tablet 4 mg PO BID PRN Spasms 06/05/23 06/05/23 06/03/23 History Allergies Allergy/AdvReac Type Severity Reaction Status Date / Time latex Allergy Intermediate hives Verified 06/01/23 08:29 codeine Allergy Mild unknown Verified 06/01/23 08:29 Alpha-Gal Allergy ALGY-Anaphy Verified 06/05/23 11:10 (Mvjchwsta-Hgfdp-9,3-Gala laxis leflunomide AdvReac Severe blurred Verified 06/01/23 08:29 vision and migraines [facility] Anesthesia Medical History (Updated 06/01/23 @ 09:09 by Ailin Strickland, RN) Wheezing Spider bite Chest pain Bradycardia Abnormal CT scan, colon Chronic constipation Anti-TPO antibodies present Immunization counseling High risk medication use Inflammatory arthritis Positive ADRIENNE (antinuclear antibody) Postop check Hearing loss Anxiety GERD (gastroesophageal reflux disease) Symptomatic cholelithiasis Surgical History History of adenoidectomy History of hernia repair History of cholecystectomy History of tonsillectomy Family History Mother Thyroid disease Other Diabetes Denies family history of Anesthesia complication Bleeding disorder Social History Smoking and tobacco/nicotine status: current every day tobacco/nicotine user Alcohol intake: never Substance/Drug Use: never Marital status: Single Number of children: 1 Current occupational status: employed Female Reproductive History Date of last menstrual period: 06/05/23 Data Anesthesia 06/05/23 10:48 06/05/23 10:48 Short CBC 06/05/23 Range/Units 10:48 WBC 6.03 (3.29-11.43) 10^3/uL Hgb 14.00 (11.27-16.99) g/dL Hct 41.6 (36-47) % MCV 93.5 (85-98) fl Plt Count 296 (157-399) 10^3/cmm Neut % (Auto) 56.2 % Neut # (Auto) 3.38 (1.8-7.7) 10^3/uL Cardiac Studies: 2 Cardiac Event Monitor 11/21/21 Holter Monitor 09/26/21
[2023-06-05 11:27] LABS: Alanine Aminotransferase 20 U/L (0-33); Albumin Level 4.1 g/dL (3.5-5.2); Alkaline Phosphatase 81 U/L (35-105); Anion Gap 12.5 (5-19); Aspartate Amino Transferase 17 U/L (0-32); Blood Urea Nitrogen 6 mg/dL (6-20); Calcium 9.1 mg/dL (8.5-10.5); Carbon Dioxide 25 mmol/L (22-29); Chloride 103 mmol/L (98-107); Globulin 2.9 g/dL (1.3-4.6); Glomerular Filtration Rate 116.6 mL/min (90-130); Glucose 111 mg/dL (65-115); Osmolality Calculated 282 mOsm/kg (285-295); Potassium 3.5 mmol/L (3.5-5.1); Sodium 137 mmol/L (136-145); Total Bilirubin 0.3 mg/dL (0.15-1.2)
[2023-06-05 11:38] LABS: Urine Appearance SL Hazy (CLEAR); Urine Color Straw (Yellow); pH Urine 6 (5-7)
[2023-06-05 11:39] LABS: Add Urine Microscopic? YES; Bilirubin Urine Neg (Negative); Blood Urine 3+ (Negative); Glucose Urine UA Norm (Normal); Ketones Urine Negative (Negative); Leukocyte Esterase Urine Negative (Negative); Nitrate Urine Negative (Negative); Protein Urine Neg (Negative); RBC Urine 50-80 /hpf (0-2); Squamous Epithelial Cell Urine 0-4 /hpf (0-5); Urobilinogen Urine Neg (Negative); WBC Urine 0-4 /hpf (0-5)
[2023-06-05 11:40] LABS: Add Urine Culture? Yes; Bacteria Urine TRACE /hpf
[2023-06-09] VITALS (30 sets, daily range): BP systolic 97–119; BP diastolic 53–83; PULSE 57–97; RESP 12–18; TEMP 36.2–36.7; O2SAT 92–99; BMI 28.0
[2023-06-09] MEDS: sodium chloride 0.9% 500 ML IV (06:34)
[2023-06-09] MEDS: scopolamine 1.5 Patch 1 PATCH TRANSDERMA (06:35)
[2023-06-09 06:39] LABS: OR HCG Qualitative Urine Negative (Negative)
--- NOTE | 2023-06-09 06:42 | W.PM.OPSUD ---
Surgery/Procedure H&P Update DATE OF PROCEDURE: June 09, 2023 DATE H&P PERFORMED: 06/01/23 H&P UPDATE INFORMATION: I have reviewed H&P completed within last 30 days, I have examined patient prior to procedure and No changes to prior documentation PREOP DIAGNOSIS: abnormal uterine bleeding, mixed urinary incontinence PLANNED PROCEDURE: Operation Date: 06/09/23 07:00 Proposed Procedures p Total vaginal hysterectomy 12441, Single incision sling 13271,N92.1,N93.46(Not Applicable) - Osmar Monet MD s Sling Single Incision Sling(Not Applicable) - Osmar Monet MD
[2023-06-09] MEDS: sodium chloride 0.9% 1,000 ML 30 ML IV ×2 (06:55→09:34)
[2023-06-09] MEDS: ceFOXitin 2,000 MG in sodium chloride 0.9% (plus) 50 ML 100 MG IV (07:03)
[2023-06-09] MEDS: lidocaine-epi 2% 20 mL INJ INJECTION (07:37)
--- NOTE | 2023-06-09 07:59 | P.ANESUD_ITS ---
Pre-Anesthetic Update Pre-Anesthetic Assessment: Date of Surgery/Procedure: 06/09/23 Preop Liv gnosis: abnormal uterine bleeding, mixed urinary incontinence Proposed Procedure: Operation Date: 06/09/23 07:00 Proposed Procedures p Total vaginal hysterectomy 32384, Single incision sling 65026,N92.1,N93.46(Not Applicable) - Osmar Monet MD s Sling Single Incision Sling(Not Applicable) - Osmar Monet MD Any changes to Pre-Anesthetic Assessment?: No Last Intake: Intake Last Liquid Date 06/08/23 Last Liquid Time 23:00 Last Solid Date 06/08/23 Last Solid Time 23:00 Labs Last 48hrs: Blood Bank 06/09/23 06:25 Blood Type A Positive Rho(D) Type Rh positive Antibody Screen Negative Vitals: Temperature 97.3 F L 06/09/23 06:11 Temperature Source Temporal Artery S can 06/09/23 06:11 Pulse Rate 87 06/09/23 06:11 Respiratory Rate 16 06/09/23 06:11 Blood Pressure 117/83 06/09/23 06:11 Blood Pressure [place] n 94 06/09/23 06:11 Pulse Oximetry 99 06/09/23 06:11 Oxygen Delivery Me thod Room Air 06/09/23 06:11 Exam: Pre-Anes Outpt Exam: alert, oriented x 3, clear to auscultation bilaterally and regular rate & rhythm Cardiac Studies: Cardiac Event Monitor 11/21/21 Holter Monitor 09/26/21
--- NOTE | 2023-06-09 08:47 | P.OP_ITS ---
Operative Report Date of procedure: June 09, 2023 Pre-op diagnosis: Abnormal uterine bleeding unresponsive to medical management Mixed urinary incontinence Post-op diagnosis: Same Post-op findings: Normal-sized uterus. Normal fallopian tubes Procedure done: Total vaginal hysterectomy with bilateral salpingectomy Specimens removed/disposition: Uterus Left and right fallopian tube Surgeon: Osmar Monet MD Estimated blood loss (mL): 75 IV fluids (mL): 800 Urine output (mL): 400 Complications: None Procedure: After informed consent and risks, benefits, indications and alternatives reviewed with the patient was taken to the operating room. The patient was p laced in dorsal lithotomy position prepped, and draped in the usual sterile fashion. The pre-procedure timeout verifying the correct patient, procedure, site and side, could not requirements was performed and acknowledge by the OR team. A Castillo catheter was placed. A Bookwalter vaginal retractor was placed into the vagina in usual manner visualize the cervix. Cervix was grasped with a single tooth tenaculum and circumferentially infiltrated with 2% lidocaine with epinephrine. Then cervix was circumferentially incised with bovie and the bladder was dissected off the pubovesical cervical fascia anteriorly with a sponge stick and Metzenbaum scissors. The anterior peritoneal reflection was identified and the anterior cul-de-sac was entered sharply with Metzenbaum scissors. The same procedure was performed posteriorly and a posterior colpotomy was made through the posterior cul-de-sac space without difficulty and the posterior blade of the Bookwalter vaginal retractor was advanced posteriorly into the cul-de-sac. At this time, the left and right uterosacral ligaments were isolated and ligated with 0 Vicryl. The LigaSure device was placed over the uterosacral ligaments on either side and was then used in a serial fashion up through the cardinal ligaments bilaterally cross-clamped, cut, and sealed with the LigaSure device. Finally, the uterine arteries were cross-clamped, cut, sealed and ligated with the LigaSure device. Hemostasis was assured. The broad ligaments were then serially clamped, sealed and cut with the LigaSure device on both sides. Excellent hemostasis was visualized. Both cornua were clamped, sealed and cut with the LigaSure device. Then the pedicles were then suture ligated with excellent hemostasis. The uterus was excised and submitted for pathologic evaluation. No other abnormalities were noted in the pelvic cavity. Then the right side Infundibular ligament was identified. The ureter was confirmed along the pelvic side wall and peristalsis was noted. The right fallopian tube was identified and the LigaSure device was then used to clamp, sealed and transcepted the fallopian tube, again being sure to be clear of the ureter and the ovary. The same process was then repeated on the left side. Good hemostasis was assure on both sides. The peritoneum was then closed in a pursestring fashion with 0 Vicryl suture. Bludigo (indigocarmine ) was given IV. The vaginal cuff angles were closed with [id number] #0 Vicryl suture on both sides and transfixed with the ipsilateral cardinal and uterosacral ligaments. The remainder of the vaginal cuff was closed with #0 Vicryl in a running locked fashion. Then proceeded to perform the single incision mid urethral sling. A vertical midline incision was made beneath the midurethra, nearly 1.5 cm length. Careful submucosal dissection was performed bilaterally up to the interior portion of the inferior pubic ramus. The insertion of adductor longus tendon on the patient?s pubic ramus was identified as reference land alanna. Palpated the notch along the internal edge of ischiopubic ramus where the adductor longus tendon and the inferior pubic ramus meet. The Altis single incision sling (SIS) was selected. Then the needle of the SIS inserted aiming at the location of this notch. One of the integrated self-fixating tips place onto the needle by sliding it over the end of the needle. The needle/sling assembly was inserted toward the location of identified reference notch making sure that the flat of the handle is perpendicular to the desired path. The needle was tracked along the posterior surface of the ischiopubic ramus until the midline alanna on the mesh is approximately at the midline position under the urethra. The needle was removed and the same was repeated on the contralateral side until the appropriate sling tension under the urethra was achieved ensuring that the mesh lays flat. The needle was removed and vaginal incision was closed in a running interlocking fashion with 2-0 Vicryl. At this time, instruments were removed from the vagina at hemostasis assured. Then the Castillo catheter was removed and cystoscope was inserted. The bladder was filled with sterile water. Complete evaluation of the bladder mucosa was performed noting no lacerations, dimpling, tears, bleeding of the mucosa or muscular layers. Both ureteral orifices were identified. Prompt excretion of blue urine from both ureteral orifices was noted. Cystoscope was withdrawn. Castillo catheter was then placed yielding clear blue urine. The patient was taken out of dorsal lithotomy position and awakened from the general anesthesia. The patient tolerated the procedure well and was taken to the PACU recovery room in a stable condition. Sponge, lap, needle and instruments counts were correct x3.
[2023-06-09] MEDS: fentaNYL 50 mcg/mL INJ 2mL IVP ×2 (09:06→09:29)
[2023-06-09] MEDS: diphenhydrAMINE 50 mg/mL SDV 1mL 12.5 MG IVP (09:53)
[2023-06-09] MEDS: ketorolac 30 mg/mL INJ IVP ×3 (11:15→22:59)
[2023-06-09] MEDS: HYDROcodone-acetaminophen 5-325 mg Tablet 1 TAB PO ×3 (11:57→21:21)
--- NOTE | 2023-06-09 13:33 | ANE.PACU2 ---
Inpatient post-anesthesia follow up: Airway intact: Yes Vital signs: Temperature 98 F Pulse Rate 79 Respiratory Rate 17 Blood Pressure 112/72 Pulse Oximetry 97 Oxygen Delivery Me thod Room Air Oxygen Flow Rate Fraction of Inspir ed Oxygen Hydration adequate: Yes Nausea and vomiting: No Pain level: 3 Mental status: Baseline
[2023-06-09] MEDS: dextrose 5%-lactated ringers 1,000 ML 125 ML IV ×2 (15:32→22:59)
[2023-06-09] MEDS: docusate sodium 100 mg Capsule PO (17:31)
[2023-06-09] MEDS: hydroxychloroquine 200 mg Tablet PO (17:31)
[2023-06-09] MEDS: acetaminophen 325 mg Tablet 650 MG PO (19:12)
[2023-06-09] MEDS: escitalopram 10 mg Tablet 20 MG PO (20:18)
[2023-06-09] MEDS: ARIPiprazole 2 mg Tablet PO (20:18)
[2023-06-09] MEDS: budesonide 0.5 mg/2 mL Neb INHALATION (21:18)
[2023-06-09] MEDS: albuterol 2.5 mg/3 mL Neb INHALATION (21:19)
[2023-06-09] MEDS: tizanidine 4 mg Tablet PO (22:59)
[2023-06-10] VITALS: BP 100/61; PULSE 54; RESP 18; TEMP 36.7; O2SAT 95
[2023-06-10] MEDS: HYDROcodone-acetaminophen 5-325 mg Tablet 1 TAB PO ×2 (01:38→05:52)
[2023-06-10] MEDS: ketorolac 30 mg/mL INJ IVP (04:10)
[2023-06-10 04:55] LABS: Hematocrit 35.9 % (36-47); Mean Corpuscular HGB Conc 32.3 g/dL (30-55); Mean Corpuscular Hemoglobin 30.8 pg (27-33); Mean Corpuscular Volume 95.2 fl (85-98); Mean Platelet Volume 10.3 fL (7.4-10.4); Platelet Count 246 10^3/cmm (157-399); Red Blood Count 3.77 10^6/uL (3.85-5.65); White Blood Count 10.05 10^3/uL (3.29-11.43)
[2023-06-10 05:00] VITALS: BP 88/51; PULSE 60; RESP 16; TEMP 36.7; O2SAT 97
[2023-06-10] MEDS: dextrose 5%-lactated ringers 1,000 ML 125 ML IV (05:51)
--- NOTE | 2023-06-10 05:59 | PC.NURSE ---
Castillo catheter removed at this time with catheter intact. Patient tolerated well. Patient educated to notify nurse after first void in order to do post-void bladder scan. Patient verbalized understanding.
[2023-06-10 07:20] VITALS: BP 96/58; PULSE 57; RESP 16; TEMP 36.6; O2SAT 96
[2023-06-10] MEDS: folic acid 1 mg Tablet PO (08:34)
[2023-06-10] MEDS: ibuprofen 800 mg tablet PO (08:34)
[2023-06-10] MEDS: hydroxychloroquine 200 mg Tablet PO (08:34)
[2023-06-10] MEDS: docusate sodium 100 mg Capsule PO (08:34)
[2023-06-10 08:37] VITALS: PULSE 66; RESP 18; O2SAT 95
[2023-06-10] MEDS: albuterol 2.5 mg/3 mL Neb INHALATION (08:37)
[2023-06-10] MEDS: budesonide 0.5 mg/2 mL Neb INHALATION (08:37)
--- NOTE | 2023-06-10 10:02 | PM.OBGYDC ---
Discharge Providers SHOE REPAIRER HELPER Date of Admission: 06/09/23 12:34 Date of Discharge: 06/10/23 Attending Provider at Admission: Osmar Monet MD Attending Provider at Discharge: Osmar Monet MD Primary Care Provider: Estela Christiansen APN Diagnoses at Discharge Discharge Diagnosis (1) Status post vaginal hysterectomy: Status: Acute Reason for Visit Reason for Visit: N39.46, N92.1 Hospital Course Hospital Course Ms. Vasquez 32 year old female with a history of abnormal uterine bleeding unresponsive to medical management and mixed urinary incontinence. She was admitted for planned total vaginal hysterectomy and single incision mid urethral sling. The procedures were performed without complication. Overnight observation was uneventful. Tolerating diet well. Ambulating without difficulty. She is afebrile hemodynamically stable postoperative day 1. She was counseled regarding pelvic rest for 6 weeks (no sex, no tampons, no vaginal douches). Return to the emergency room if any fever, increased bleeding or pain. Physical Exam Narrative: GA: Alert and oriented ?3. HEENT: WNL. Heart: Regular rate and rhythm. Lungs: Clear to auscultation bilaterally. Abdomen: Bowel sounds present, nontender. [employer]: Spotting bleeding. Extremities: No edema, no cyanosis, no calves pain. Urinary Catheter Management: Castillo: Cath Placed During This Visit: yes Urinary Catheter Date of Insertion: 06/09/23 Urinary Catheter Time of Insertion: 07:40 History History History 4 Term 1 0 Miscarriages/Ectopic 3 Living Children 1 Discharge Data Studies Completed and Pending Pending at discharge Category Date Time Status Pathology: Surgical [PTH] Routine Pth 06/09/23 08:39 Received Laboratory Results WBC 10.05 10^3/uL (3.29-11.43) 06/10/23 04:10 RBC 3.77 10^6/uL (3.85-5.65) L 06/10/23 04:10 Hgb 11.60 g/dL (11.27-16.99) 06/10/23 04:10 Hct 35.9 % (36-47) L 06/10/23 04:10 MCV 95.2 fl (85-98) 06/10/23 04:10 MCH 30.8 pg (27-33) 06/10/23 04:10 MCHC 32.3 g/dL (30-55) 06/10/23 04:10 RDW 12.0 % (12.1-15.1) L 06/10/23 04:10 Plt Count 246 10^3/cmm (157-399) 06/10/23 04:10 MPV 10.3 fL (7.4-10.4) 06/10/23 04:10 Neut % (Auto) 56.2 % 06/05/23 10:48 Lymph % (Auto) 30.3 % 06/05/23 10:48 [place] % (Auto) 8.1 % 06/05/23 10:48 Eos % (Auto) 4.3 % 06/05/23 10:48 Baso % (Auto) 0.8 % 06/05/23 10:48 Neut # (Auto) 3.38 10^3/uL (1.8-7.7) 06/05/23 10:48 Lymph # (Auto) 1.8 10^3/uL (0.8-4.8) 06/05/23 10:48 [place] # (Auto) 0.5 10^3/uL (0.2-0.9) 06/05/23 10:48 Eos # (Auto) 0.3 10^3/uL (0.0-0.8) 06/05/23 10:48 Baso # (Auto) 0.1 10^3/uL (0.0-0.1) 06/05/23 10:48 Nucleated RBC % (auto) 0 % 06/05/23 10:48 Nucleated RBCs # 0.0 /100WBC 06/05/23 10:48 Sodium 137 mmol/L (136-145) 06/05/23 10:48 Potassium 3.5 mmol/L (3.5-5.1) 06/05/23 10:48 Chloride 103 mmol/L (98-107) 06/05/23 10:48 Carbon Dioxide 25 mmol/L (22-29) 06/05/23 10:48 Anion Gap 12.5 (5-19) 06/05/23 10:48 BUN 6 mg/dL (6-20) 06/05/23 10:48 Creatinine 0.6 mg/dL (0.5-0.9) 06/05/23 10:48 GFR Calculation 116.6 mL/min (90-130) 06/05/23 10:48 Glucose 111 mg/dL (65-115) 06/05/23 10:48 Calculated Osmolality 282 mOsm/kg (285-295) L 06/05/23 10:48 Calcium 9.1 mg/dL (8.5-10.5) 06/05/23 10:48 Total Bilirubin 0.3 mg/dL (0.15-1.2) 06/05/23 10:48 AST 17 U/L (0-32) 06/05/23 10:48 ALT 20 U/L (0-33) 06/05/23 10:48 Alkaline Phosphatase 81 U/L (35-105) 06/05/23 10:48 Total Protein 7.0 g/dL (6.6-8.7) 06/05/23 10:48 Albumin 4.1 g/dL (3.5-5.2) 06/05/23 10:48 Globulin 2.9 g/dL (1.3-4.6) 06/05/23 10:48 Urine Color Straw (Yellow) 06/05/23 10:43 Urine Appearance Sl hazy (CLEAR) A 06/05/23 10:43 Urine pH 6 (5-7) 06/05/23 10:43 Ur Specific [place] 1.010 (1.005-1.030) 06/05/23 10:43 Urine Protein Neg (Negative) 06/05/23 10:43 Urine Glucose (UA) Norm (Normal) 06/05/23 10:43 Urine Ketones Negative (Negative) 06/05/23 10:43 Urine Blood 3+ (Negative) H 06/05/23 10:43 Urine Nitrate Negative (Negative) 06/05/23 10:43 Urine Bilirubin Neg (Negative) 06/05/23 10:43 Urine Urobilinogen Neg mg/dL (Negative) 06/05/23 10:43 Ur Leukocyte Esterase Negative (Negative) 06/05/23 10:43 Urine RBC 50-80 /hpf (0-2) H 06/05/23 10:43 Urine WBC 0-4 /hpf (0-5) H 06/05/23 10:43 Ur Squamous Epith Cells 0-4 /hpf (0-5) H 06/05/23 10:43 Amorphous Sediment Not Reportable 06/05/23 10:43 Urine Bacteria Trace /hpf (NONE) 06/05/23 10:43 Urine HCG, Qual Negative (Negative) 06/09/23 06:06 Blood Type A Positive 06/09/23 06:25 Rho(D) Type Rh positive 06/09/23 06:25 Antibody Screen Negative 06/09/23 06:25 Vitals Last Vital Signs Temp 97.8 F 06/10/23 07:20 Pulse 66 06/10/23 08:37 Resp 18 06/10/23 08:37 BP 96/58 06/10/23 07:20 Pulse Ox 95 06/10/23 08:37 O2 Del Method Room Air 06/10/23 08:37 Results Labs OB ([facility]): Blood Type A Positive 06/09/23 Antibody Screen Negative 06/09/23 Hct 35.9 % (36-47) L 06/10/23 Hgb 11.60 g/dL (11.27-16.99) 06/10/23 Rho(D) Type Rh positive 06/09/23 Plt Count 246 10^3/cmm (157-399) 06/10/23 Hep Bs Antigen Non-reactive (Nonreactive) 10/23/20 Hep B Core Total Ab Non-reactive (Nonreactive) 10/23/20 Hepatitis C Antibody Non-reactive (Nonreactive) 10/23/20 TSH 1.05 uIU/mL (0.27-4.20) 01/22/23 FSH 8.6 mIU/mL 01/22/23 Ser , Semi-Qnt 1.00 mIU/mL 01/22/23 HCG, Qual Negative (Negative) 11/28/19 Micro Urine Specimen 06/05/23 Prolactin 9.07 ng/mL (4.8-23.3) 01/22/23 Discharge Plan Discharge Patient Disposition: Home Condition: Stable Prescriptions: New hydrocodone-acetaminophen 5-325 mg tablet 1 tab PO Q4H PRN (Reason: pain) Qty: 20 0RF acetaminophen 325 mg capsule 325 mg PO Q4H PRN (Reason: fever or pain) Qty: 60 0RF ibuprofen 800 mg tablet 800 mg PO TID PRN (Reason: pain) Qty: 60 0RF Continued hydroxychloroquine 200 mg tablet 200 mg PO BID methotrexate sodium 2.5 mg tablet 4 tab PO .Q THURSDAY folic acid 1 mg tablet 1 tab PO DAILY albuterol sulfate [Ventolin HFA] 90 mcg/actuation HFA aerosol inhaler 2 puff inhalation Q6H PRN (Reason: shortness of breath or wheezing) Qty: 8.5 1RF budesonide-formoterol [Symbicort] 80-4.5 mcg/actuation HFA aerosol inhaler 1 inh inhalation BID 30 Days Qty: 10.2 0RF Xyzal 5 mg tablet 10 mg PO BEDTIME tizanidine 4 mg tablet 4 mg PO BID PRN (Reason: Spasms) escitalopram oxalate [Lexapro] 20 mg tablet 20 mg PO BEDTIME aripiprazole [Abilify] 2 mg tablet 2 mg PO BEDTIME Discharge Orders: Discharge Order (Routine); Ordered 06/10/23 Ordered By: Osmar Monet Referrals: Osmar Monet MD [Physician] - 6 Weeks Discharge Diet: Usual diet Discharge Activity: Limit activity as instructed Patient Instructions: Bladder Sling for Women (DC), Vaginal Hysterectomy (GEN), Opioid Safety Activity Restrictions/Additional Instructions: 1. Please call [facility] on next working day to make your post-operative appointment in 2 weeks. 2. Please stay home until you come back to the clinic on first post-hospatilization check up. 3. Please follow instructions on your medications CAREFULLY. 4. If you have abdominal incision, do not cover it unless dressing is necessary because of drainage. OK to shower, but avoid bath. Leave steri-strips until they fall off. If they are still on one week after surgery, you may remove them. 5. If you had vaginal surgery or vaginal repair, Dr. Monet may instruct you to take SITZ bath. 6. Yellow, blood tinged odorous vaginal discharge is usually normal after hysterectomy or vaginal surgeries. 7. No SEXUAL INTERCOURSE, tampons, or douches until you are completely released from the post-operative care. 8. Avoid constipation by eating right and maybe using some Metamucil or Milk of Magnesia. 9. All prescription refills are given during the working hours. Please do no wait till it runs out. Call the clinic at [phone] before your medication runs out. The clinic will get in touch with your doctor to prescribe medications if necessary. 10. Please remain within 40 mile radius from our hospital because emergencies do happen now and then during the post-operative period. 11. If you have stairs at home, take one step at a time slowly and minimize the number of trips. It helps to stay in one floor for the next few days. No lifting except what you can lift by one hand until you are released from the post-operative care. 12. Driving is discouraged until you are well healed. It may be 3-4 weeks before you feel strong enough to drive. You should be able to turn and look through the rear window without pain and you should be able to push the brake pedal very hard without pain before you drive. No fast rules, but SAFETY should be your primary concern. DO NOT drive if you are on sedating medications such as narcotics. 13. Call the clinic (during working hours) to make urgent appointment or go to the Emergency room, if any of the following occurs: i. Vaginal bleeding becomes heavy, more than a period. ii. Incision becomes red and sore, or drains pus. iii. Your TEMPERATURE is over 100.4F or you have chill. iv. IV site becomes red and swollen (a little ``knot?? is usually OK) v. Persistent nausea and vomiting vi. Persistent constipation or diarrhea vii. Rash or allergic reaction to medications. Discharge Attestations SHOE REPAIRER HELPER Time Spent in Discharge Care*: greater than 30 min Coding Level of Care Code Acute Code for Chg Fwd Diagnoses Status post vaginal hysterectomy Z90.710
== END 2023-06-10 10:37 | disposition home or self-care (01) ==
LOC: MEDSURG 12:34
PROVIDERS: Admitting Provider Obstetrics & Gynecology; PCP Nurse Practitioner; Visit Provider Obstetrics & Gynecology
PROC: (CPT 57288; principal; 2023-06-09 07:00)
PROC: (CPT 57288; 2023-06-09 07:00)
PROC: (CPT 58700; 2023-06-09 07:00)
DX: N93.9 Abnormal uterine and vaginal bleeding, unspecified (principal); N39.46 Mixed incontinence; N72 Inflammatory disease of cervix uteri; M79.7 Fibromyalgia; F17.290 Nicotine dependence, other tobacco product, uncomplicated
CPT/HCPCS: 57288; 58262; 36415; 51798; 80053; 81001; 81025; 84703; 85025; 85027; 86850; 86900; 87086; 88307; 94640; A4216; C1713; G0378; J0694; J1100; J1200; J1885; J2250; J2405; J2704; J2710; J3010; J3490; J7030; J7040; J7121; J7613; J7626

== ENCOUNTER → 2023-07-20 14:20 | Outpatient (BNVA) | payer MEDICAID, SELFPAY | PROVIDERS: PCP Nurse Practitioner Family; Visit Provider Obstetrics & Gynecology | DX: R23.2 Flushing (principal); Z48.816 Encounter for surgical aftercare following surgery on the genitourinary system | CPT/HCPCS: 83001; 84443 ==

== ENCOUNTER → 2023-10-21 10:27 | Outpatient (BNVA) | payer MEDICAID, SELFPAY | PROVIDERS: PCP Nurse Practitioner Family; Visit Provider Nurse Practitioner Family | DX: F41.9 Anxiety disorder, unspecified (principal); R76.8 Other specified abnormal immunological findings in serum; M19.90 Unspecified osteoarthritis, unspecified site; Z79.899 Other long term (current) drug therapy; Z13.6 Encounter for screening for cardiovascular disorders; E53.8 Deficiency of other specified B group vitamins; E55.9 Vitamin D deficiency, unspecified | CPT/HCPCS: 80053; 80061; 81003; 82306; 82607; 82746; 83036; 83880; 84443; 85025 ==

== ENCOUNTER → 2024-03-15 11:22 | Outpatient (BNVA) | payer OTHER, SELFPAY | PROVIDERS: PCP Nurse Practitioner Family; Visit Provider Nurse Practitioner Family | DX: Z02.1 Encounter for pre-employment examination (principal) | CPT/HCPCS: 80307; 86480 ==

== ENCOUNTER → 2024-04-12 08:16 | Outpatient (BNVA) | payer OTHER, SELFPAY | PROVIDERS: PCP Nurse Practitioner Family; Visit Provider Nurse Practitioner Family | DX: J02.9 Acute pharyngitis, unspecified (principal) | CPT/HCPCS: 87880 ==

== ENCOUNTER → 2024-12-20 14:22 | Outpatient (BNVA) | payer MEDICAID, SELFPAY | PROVIDERS: PCP Nurse Practitioner Family; Visit Provider Nurse Practitioner Family | DX: Z79.899 Other long term (current) drug therapy (principal); E55.9 Vitamin D deficiency, unspecified; Z13.6 Encounter for screening for cardiovascular disorders | CPT/HCPCS: 73030; 80053; 80061; 81003; 82306; 83036; 83516; 84439; 84443; 85025 ==

== ENCOUNTER → 2025-01-19 16:22 | Outpatient (BNVA) | payer MEDICAID, SELFPAY | PROVIDERS: PCP Nurse Practitioner Family; Visit Provider Nurse Practitioner Family | DX: S63.90XA Sprain of unspecified part of unspecified wrist and hand, initial encounter (principal); X58.XXXA Exposure to other specified factors, initial encounter | CPT/HCPCS: 73130 ==

== ENCOUNTER → 2025-02-08 14:51 | Outpatient (BNVA) | payer MEDICAID, SELFPAY | PROVIDERS: PCP Nurse Practitioner Family; Visit Provider Physician Assistant | DX: S63.91XA Sprain of unspecified part of right wrist and hand, initial encounter (principal); X58.XXXA Exposure to other specified factors, initial encounter | CPT/HCPCS: 73110 ==

== ENCOUNTER 2025-02-27 07:51 | Outpatient (CLI) | payer MEDICAID, SELFPAY ==
--- NOTE | 2025-02-27 08:00 | MR_ITS ---
WS: [id number] MRI RIGHT WRIST WITHOUT CONTRAST. COMPARISON: Radiograph 02/08/2025 and 01/19/2025 Multiplanar, multisequence imaging is performed without contrast. No fractures or marrow edema. There is normal radiocarpal alignment. Carpal rows are normally aligned. No metallic foreign bodies. No abscess or fluid collection. TFCC appears intact. The scapholunate ligament is normal. There is no abnormality noted near the collateral ligaments of the first carpometacarpal joint in the area of pain. Radial nerve is poorly visualized but there are no associated changes of edema or thickening. MR/MR wrist RT wo con* [id number] IMPRESSION: Negative MRI RIGHT wrist. No fractures or marrow edema. No abscess or ligament abnormality.
== END 2025-02-27 07:52 | disposition home or self-care (01) ==
PROVIDERS: PCP Nurse Practitioner Family; Visit Provider Physician Assistant
DX: S63.91XD Sprain of unspecified part of right wrist and hand, subsequent encounter (principal); M79.643 Pain in unspecified hand
CPT/HCPCS: 73221